=== PATIENT | male | born 1955 | race African-American/Black ===

== ENCOUNTER 2017-06-08 00:26 | Emergency (ER) | payer MEDICAID ==
[~2017-06-08] VITALS: Ht 180.3 cm; Wt 90.7 kg
[2017-06-08] MEDS ORDERED: MORPHINE SULFATE INJ 2 MG/ML DISP.SYRIN ONE ×2 (00:40→03:20)
[2017-06-08] MEDS ORDERED: ONDANSETRON HCL/PF 4 MG/2 ML VIAL ONE ×2 (00:40→03:20)
[2017-06-08] MEDS ORDERED: MORPHINE SULFATE INJ 4 MG/ML DISP.SYRIN ONE ×2 (00:42→03:21)
[2017-06-08] MEDS ORDERED: ASPIRIN 81 MG TAB.CHEW ONE ×2 (00:42)
[2017-06-08 00:51] LABS: BASOPHILS % (AUTO) 0.3 % (0.0-2.0); EOSINOPHILS % (AUTO) 0.6 % (0.0-6.0); HEMATOCRIT 31 % (39-51); HEMOGLOBIN 9.4 g/dL (13.5-17.5); LYMPHOCYTES # (AUTO) 1.3 /CMM (0.8-4.8); LYMPHOCYTES % (AUTO) 19.3 % (20.0-44.0); MEAN CORPUSCULAR HEMOGLOBIN 23 PG (26.0-33.0); MEAN CORPUSCULAR HGB CONC 31 g/dl (31.0-36.0); MEAN CORPUSCULAR VOLUME 74 fL (80-96); MONOCYTES # (AUTO) 0.4 /CMM (0.1-1.30); MONOCYTES % (AUTO) 6.3 % (2.0-12.0); NEUTROPHILS # (AUTO) 4.9 /CMM (1.8-8.9); NEUTROPHILS % (AUTO) 73.5 % (43.0-81.0); PLATELET COUNT (AUTO) 259 /CMM (150-450); RDW COEFFICIENT OF VARIATION 23.6 (11.5-15.0); WHITE BLOOD COUNT (AUTO) 6.7 K/uL (4.3-11.0)
[2017-06-08] MEDS: MORPHINE SULFATE INJ 2 MG/ML DISP.SYRIN IV ONE ×2 (01:03→03:26)
[2017-06-08] MEDS: ONDANSETRON HCL/PF 4 MG/2 ML VIAL IV ONE ×2 (01:03→03:27)
[2017-06-08] MEDS: ASPIRIN 81 MG TAB.CHEW PO ONE (01:03)
[2017-06-08 01:04] LABS: CALCIUM, SERUM 8.8 mg/dL (8.5-10.1); CARBON DIOXIDE 25 mmol/L (21-32); CHLORIDE 109 mmol/L (98-107); CREATININE 1.4 mg/dL (0.6-1.3); GLUCOSE 112 mg/dL (74-106); POTASSIUM 3.8 mmol/L (3.5-5.1); SODIUM SERUM 145 mmol/L (136-145); UREA NITROGEN, BLOOD 15 mg/dL (7-18)
[2017-06-08 01:13] LABS: TROPONIN I < 0.017 ng/mL (0.00-0.056)
[2017-06-08 01:15] LABS: INR 0.99 (0.87-1.13); PROTHROMBIN TIME 10.6 SECS (9.5-12.7)
[2017-06-08 02:19] LABS: EOSINOPHILS % (MANUAL) 1 % (0-4); LYMPHOCYTES % (MANUAL) 19 % (16-48); MONOCYTES % (MANUAL) 9 % (0-11.0); NEUTROPHILS % (MANUAL) 71 (42-76)
[2017-06-08] MEDS ORDERED: diphenhydrAMINE HCL 50 MG/ML VIAL ONE (02:39)
[2017-06-08 02:41] VITALS: BP 110/68
[2017-06-08] MEDS: diphenhydrAMINE HCL 50 MG/ML VIAL IV ONE (02:50)
== END 2017-06-08 03:25 | disposition short-term general hospital (02) ==
LOC: ER 00:31
DX: I25.110 Atherosclerotic heart disease of native coronary artery with unstable angina pectoris (principal); R55 Syncope and collapse; I25.2 Old myocardial infarction; Z86.73 Personal history of transient ischemic attack (TIA), and cerebral infarction without residual deficits; H40.9 Unspecified glaucoma; Z88.0 Allergy status to penicillin; Z95.0 Presence of cardiac pacemaker; Z95.1 Presence of aortocoronary bypass graft
CPT/HCPCS: 36415; 71010-TC; 80048-TC; 84484-TC; 85025-TC; 85730-TC; A4606; J1200; J2270; J2405; Z7610

== ENCOUNTER 2017-06-13 02:45 | Inpatient (IN) | payer MEDICAID ==
[2017-06-13] MEDS ORDERED: ASPIRIN 325 MG TABLET PO ONE (03:00)
[2017-06-13] MEDS ORDERED: ASPIRIN 81 MG TAB.CHEW ONE (03:05)
[2017-06-13] MEDS ORDERED: ONDANSETRON 4 MG TAB.RAPDIS SL ONE (03:30)
[2017-06-13] MEDS ORDERED: ONDANSETRON HCL/PF 4 MG/2 ML VIAL ONE (03:48)
[2017-06-13] MEDS ORDERED: MORPHINE SULFATE INJ 4 MG/ML DISP.SYRIN ONE (04:30)
[2017-06-13] MEDS ORDERED: MORPHINE SULFATE INJ 2 MG/ML DISP.SYRIN IV ONE (04:30)
[2017-06-13] MEDS ORDERED: MORPHINE SULFATE INJ 2 MG/ML DISP.SYRIN ONE (04:31)
[2017-06-13] MEDS ORDERED: ACETAMINOPHEN 325 MG TABLET PO PRN (07:00)
[2017-06-13] MEDS ORDERED: MORPHINE SULFATE INJ 2 MG/ML DISP.SYRIN IV PRN (07:00)
[2017-06-13] MEDS: ONDANSETRON HCL/PF 4 MG/2 ML VIAL IVP PRN ×3 (08:19→20:59)
[2017-06-13] MEDS: diphenhydrAMINE HCL 50 MG/ML VIAL IV PRN ×3 (08:20→20:58)
[2017-06-13] MEDS: ENOXAPARIN SODIUM 40 MG/0.4 ML DISP.SYRIN SQ SCH (08:21)
[2017-06-13] MEDS ORDERED: MORP10SY2 IV (10:15)
[2017-06-13] MEDS ORDERED: DIPH50VI4 IV (10:15)
[2017-06-13] MEDS ORDERED: SIMV80TA2 PO (10:15)
[2017-06-13] MEDS ORDERED: SOTA80TA PO (10:15)
[2017-06-13] MEDS ORDERED: ASPI81TA2 PO (10:15)
[2017-06-13] MEDS ORDERED: LEVO500P8 IV (10:15)
[2017-06-13] MEDS ORDERED: BIMA2.5D5 EACHEYE (10:15)
[2017-06-13] MEDS ORDERED: BRIM5DRO EACHEYE (10:15)
[2017-06-13] MEDS ORDERED: PANT40VI IV (10:15)
[2017-06-13] MEDS ORDERED: TICA90TA PO (10:15)
[2017-06-13] MEDS ORDERED: ISOS60TA4 PO (10:15)
[2017-06-13] MEDS ORDERED: ONDA4VIA30 IV (10:15)
[2017-06-13] MEDS ORDERED: ONDANSETRON HCL/PF 4 MG/2 ML VIAL IV PRN (15:00)
[2017-06-13] MEDS ORDERED: TICAGRELOR 90 MG TABLET PO SCH (17:00)
[2017-06-13] MEDS ORDERED: BIMATOPROST 2.5 ML DROPS OP SCH (18:00)
[2017-06-13] MEDS: BRIMONIDINE TARTRATE OPHT SOLN 5 ML BOTTLE OP SCH (18:35)
[2017-06-13] MEDS: MORPHINE SULFATE INJ 4 MG/ML DISP.SYRIN IV PRN (20:40)
[2017-06-13] MEDS ORDERED: SIMVASTATIN 40 MG TABLET PO SCH (22:00)
[2017-06-13] MEDS ORDERED: LATANOPROST EYE DROP 0.005% 2.5 ML BOTTLE EACHEYE SCH (22:00)
[2017-06-14] MEDS: diphenhydrAMINE HCL 50 MG/ML VIAL IV PRN ×4 (02:14→18:47)
[2017-06-14] MEDS: MORPHINE SULFATE INJ 4 MG/ML DISP.SYRIN IV PRN ×4 (02:14→17:22)
[2017-06-14] MEDS ORDERED: REGADENOSON 0.4 MG/5 ML DISP.SYRIN IVP ONE (08:00)
[2017-06-14] MEDS ORDERED: LOSARTAN POTASSIUM 50 MG TABLET PO SCH (09:00)
[2017-06-14] MEDS ORDERED: SOTALOL HCL 80 MG TABLET PO SCH (09:00)
[2017-06-14] MEDS ORDERED: ASPIRIN 81 MG TAB.CHEW PO SCH (09:00)
[2017-06-14] MEDS ORDERED: ISOSORBIDE MONONITRATE (30MG) 30 MG TAB.SR.24H PO SCH (09:00)
[2017-06-14] MEDS ORDERED: ISOSORBIDE MONONITRATE 60 MG TAB.SR.24H PO SCH (09:00)
[2017-06-14] MEDS: BRIMONIDINE TARTRATE OPHT SOLN 5 ML BOTTLE OP SCH ×2 (09:25→17:13)
[2017-06-14] MEDS: ENOXAPARIN SODIUM 40 MG/0.4 ML DISP.SYRIN SQ SCH (09:31)
[2017-06-14] MEDS: Magnesium 1GM/D5W 100ML PREMIX 100 ML IV SCH ×2 (11:17→12:39)
[2017-06-14] MEDS: TICAGRELOR 90 MG TABLET PO SCH ×2 (11:17→17:13)
[2017-06-14] MEDS: ONDANSETRON HCL/PF 4 MG/2 ML VIAL IVP PRN ×2 (12:39→18:47)
== END 2017-06-14 20:00 | disposition home or self-care (01) | DRG 198 ==
DX: R07.89 Other chest pain (principal); I25.10 Atherosclerotic heart disease of native coronary artery without angina pectoris; I69.351 Hemiplegia and hemiparesis following cerebral infarction affecting right dominant side; I10 Essential (primary) hypertension; R55 Syncope and collapse; Z95.810 Presence of automatic (implantable) cardiac defibrillator; Z95.1 Presence of aortocoronary bypass graft; Z95.5 Presence of coronary angioplasty implant and graft; H40.9 Unspecified glaucoma; Z76.5 Malingerer [conscious simulation]; Z88.0 Allergy status to penicillin; Z88.8 Allergy status to other drugs, medicaments and biological substances; G89.29 Other chronic pain; E66.9 Obesity, unspecified; E78.5 Hyperlipidemia, unspecified

== ENCOUNTER 2017-06-20 00:40 | Emergency (ER) | payer MEDICAID ==
[~2017-06-20] VITALS: Ht 180.3 cm; Wt 107.0 kg
[~2017-06-20 00:40] MED LIST: ASPI81TA2 PO; BIMA2.5D5 EACHEYE; BRIM5DRO EACHEYE; DIPH50VI4 IV; ISOS60TA4 PO; LEVO500P8 IV; MORP10SY2 IV; ONDA4VIA30 IV; PANT40VI IV; SIMV80TA2 PO; SOTA80TA PO; TICA90TA PO
[2017-06-20 00:45] VITALS: BP 114/96
--- NOTE | 2017-06-20 00:54 | NUR ---
TO BED 11 STATES "HAD SHARP PAIN IN MY CHEST THEN PASSED OUT, NOW I HAVE PRESSURE". PT AAOX4 NO ACUTE DISTRESS NOTED, RESP EVEN AND UNLABORED. PLACE PT ON CARDIAC MONITORING, CONTINUOUS POX. PENDING ER MD DOLAN.
--- NOTE | 2017-06-20 01:29 | NUR ---
PT NOT IN ROOM FOR BLOOD DRAW. PT ELOPED.
== END 2017-06-20 01:31 | disposition left against medical advice (07) ==
LOC: ER 00:43
DX: R07.89 Other chest pain (principal); R55 Syncope and collapse; E11.9 Type 2 diabetes mellitus without complications; H40.9 Unspecified glaucoma; I25.10 Atherosclerotic heart disease of native coronary artery without angina pectoris; K21.9 Gastro-esophageal reflux disease without esophagitis; Z79.82 Long term (current) use of aspirin; Z86.73 Personal history of transient ischemic attack (TIA), and cerebral infarction without residual deficits; Z88.0 Allergy status to penicillin; Z91.19 Patient's noncompliance with other medical treatment and regimen; Z95.1 Presence of aortocoronary bypass graft; Z95.810 Presence of automatic (implantable) cardiac defibrillator; Z88.8 Allergy status to other drugs, medicaments and biological substances
CPT/HCPCS: A4606; Z7610

== ENCOUNTER 2017-07-06 12:16 | Emergency (ER) | payer MEDICAID ==
[~2017-07-06] VITALS: Ht 180.3 cm; Wt 106.6 kg
[2017-07-06 12:55] LABS: BASOPHILS # (AUTO) 0.3 /CMM (0.0-0.2); BASOPHILS % (AUTO) 4.2 % (0.0-2.0); EOSINOPHILS # (AUTO) 0.1 /CMM (0.0-0.7); EOSINOPHILS % (AUTO) 0.8 % (0.0-6.0); HEMATOCRIT 32 % (39-51); HEMOGLOBIN 9.7 g/dL (13.5-17.5); LYMPHOCYTES # (AUTO) 1.2 /CMM (0.8-4.8); LYMPHOCYTES % (AUTO) 14.8 % (20.0-44.0); MEAN CORPUSCULAR HEMOGLOBIN 22 PG (26.0-33.0); MEAN CORPUSCULAR HGB CONC 30 g/dl (31.0-36.0); MEAN CORPUSCULAR VOLUME 72 fL (80-96); MONOCYTES # (AUTO) 0.5 /CMM (0.1-1.30); NEUTROPHILS # (AUTO) 6.1 /CMM (1.8-8.9); NEUTROPHILS % (AUTO) 74.2 % (43.0-81.0); PLATELET COUNT (AUTO) 323 /CMM (150-450); RDW COEFFICIENT OF VARIATION 20.5 (11.5-15.0); RED BLOOD CELL COUNT(AUTO) 4.41 MIL/uL (4.5-6.0); WHITE BLOOD COUNT (AUTO) 8.2 K/uL (4.3-11.0)
[2017-07-06 13:05] LABS: CALCIUM, SERUM 8.7 mg/dL (8.5-10.1); CARBON DIOXIDE 23 mmol/L (21-32); CHLORIDE 106 mmol/L (98-107); CREATININE 1.5 mg/dL (0.6-1.3); GLUCOSE 97 mg/dL (74-106); POTASSIUM 4.2 mmol/L (3.5-5.1); SODIUM SERUM 141 mmol/L (136-145); UREA NITROGEN, BLOOD 19 mg/dL (7-18)
[2017-07-06 13:11] LABS: ALANINE AMINOTRANSFERASE 23 U/L (12-78); ALKALINE PHOSPHATASE 109 U/L (46-116); ASPARTATE AMINOTRANSFERASE 19 U/L (15-37); BILIRUBIN,DIRECT 0.1 mg/dL (0.0-0.2); BILIRUBIN,TOTAL 0.3 mg/dL (0.2-1.0); TOTAL PROTEIN, SERUM 7.7 g/dL (6.4-8.2)
[2017-07-06 13:12] LABS: TROPONIN I < 0.017 ng/mL (0.00-0.056)
[2017-07-06 13:41] LABS: INR 0.95 (0.87-1.13); PROTHROMBIN TIME 9.9 SECS (9.5-12.7)
[2017-07-06 13:59] LABS: LYMPHOCYTES % (MANUAL) 13 % (16-48); MONOCYTES % (MANUAL) 11 % (0-11.0); NEUTROPHILS % (MANUAL) 76 (42-76)
[2017-07-06 15:09] VITALS: BP 129/76
== END 2017-07-06 15:14 | disposition home or self-care (01) ==
LOC: ER 12:17
DX: R07.89 Other chest pain (principal); H40.9 Unspecified glaucoma; I10 Essential (primary) hypertension; K21.9 Gastro-esophageal reflux disease without esophagitis; Z79.82 Long term (current) use of aspirin; Z86.73 Personal history of transient ischemic attack (TIA), and cerebral infarction without residual deficits; Z95.1 Presence of aortocoronary bypass graft; Z88.0 Allergy status to penicillin; Z88.8 Allergy status to other drugs, medicaments and biological substances
CPT/HCPCS: 36415; 71010-TC; 80048-TC; 80076-TC; 84484-TC; 85025-TC; 85730-TC; A4606; Z7610

== ENCOUNTER 2017-11-08 15:07 | Inpatient (IN) | payer MEDICAID, OTHER ==
[~2017-11-08] VITALS: Ht 177.8 cm; Wt 103.0 kg
[~2017-11-08 15:07] MED LIST changes: +ASPI-1169 PO; -ASPI81TA2 PO
[2017-11-08] MEDS ORDERED: ASPIRIN 81 MG TAB.CHEW ONE (15:17)
[2017-11-08] MEDS ORDERED: ASPIRIN 325 MG TABLET PO ONE (15:30)
[2017-11-08 15:33] LABS: BASOPHILS # (AUTO) 0.3 /CMM (0.0-0.2); BASOPHILS % (AUTO) 4.1 % (0.0-2.0); EOSINOPHILS # (AUTO) 0.1 /CMM (0.0-0.7); EOSINOPHILS % (AUTO) 1.2 % (0.0-6.0); HEMATOCRIT 36 % (39-51); HEMOGLOBIN 11.8 g/dL (13.5-17.5); LYMPHOCYTES # (AUTO) 1.7 /CMM (0.8-4.8); LYMPHOCYTES % (AUTO) 27.7 % (20.0-44.0); MEAN CORPUSCULAR HEMOGLOBIN 24 PG (26.0-33.0); MEAN CORPUSCULAR HGB CONC 33 g/dl (31.0-36.0); MEAN CORPUSCULAR VOLUME 74 fL (80-96); MONOCYTES # (AUTO) 0.4 /CMM (0.1-1.30); MONOCYTES % (AUTO) 7.1 % (2.0-12.0); NEUTROPHILS # (AUTO) 3.7 /CMM (1.8-8.9); NEUTROPHILS % (AUTO) 59.9 % (43.0-81.0); PLATELET COUNT (AUTO) 254 /CMM (150-450); RDW COEFFICIENT OF VARIATION 23.3 (11.5-15.0); RED BLOOD CELL COUNT(AUTO) 4.89 MIL/uL (4.5-6.0); WHITE BLOOD COUNT (AUTO) 6.2 K/uL (4.3-11.0)
[2017-11-08 15:41] LABS: CALCIUM, SERUM 8.8 mg/dL (8.5-10.1); CARBON DIOXIDE 25 mmol/L (21-32); CHLORIDE 105 mmol/L (98-107); CREATININE 1.3 mg/dL (0.6-1.3); GLUCOSE 147 mg/dL (74-106); POTASSIUM 3.6 mmol/L (3.5-5.1); SODIUM SERUM 138 mmol/L (136-145); UREA NITROGEN, BLOOD 16 mg/dL (7-18)
[2017-11-08 15:46] LABS: INR 0.97 (0.85-1.15)
[2017-11-08 15:50] LABS: TROPONIN I < 0.017 ng/mL (0.00-0.056)
[2017-11-08] MEDS ORDERED: ONDANSETRON HCL/PF 4 MG/2 ML VIAL ONE ×2 (16:30→19:47)
[2017-11-08] MEDS ORDERED: ONDANSETRON HCL/PF 4 MG/2 ML VIAL IV ONE ×2 (16:30→20:00)
[2017-11-08] MEDS ORDERED: HYDROMORPHONE INJ 0.5 MG/0.5 ML SYRINGE IV ONE (16:30)
[2017-11-08] MEDS ORDERED: HYDROMORPHONE 1 MG/1 ML DISP.SYRIN ONE ×2 (16:30→18:29)
[2017-11-08] MEDS ORDERED: BISA10SU61 RC (18:17)
[2017-11-08] MEDS ORDERED: PANT40TA4 PO (18:17)
[2017-11-08] MEDS ORDERED: LISI2.5T2 PO (18:17)
[2017-11-08] MEDS ORDERED: ATOR80TA PO (18:17)
[2017-11-08] MEDS ORDERED: CRAN1CAP6 PO (18:17)
[2017-11-08] MEDS ORDERED: ACET325T53 PO (18:17)
[2017-11-08] MEDS ORDERED: HYDR4TAB4 PO (18:17)
[2017-11-08] MEDS ORDERED: MAGN400O6 PO (18:17)
[2017-11-08] MEDS ORDERED: NA P133E RC (18:17)
[2017-11-08] MEDS ORDERED: RANO500T3 PO (18:17)
[2017-11-08] MEDS ORDERED: diphenhydrAMINE HCL 25 MG CAPSULE ONE (18:29)
[2017-11-08] MEDS ORDERED: HYDROMORPHONE 1 MG/1 ML DISP.SYRIN IV ONE (18:30)
[2017-11-08] MEDS ORDERED: diphenhydrAMINE HCL 25 MG CAPSULE PO ONE (18:30)
[2017-11-08 19:51] VITALS: BP 115/72
[2017-11-08] MEDS ORDERED: ACETAMINOPHEN 325 MG TABLET PO PRN (20:30)
[2017-11-08] MEDS ORDERED: NITROGLYCERIN 0.4 MG/TAB BOTTLE SL PRN (20:30)
[2017-11-08] MEDS ORDERED: ONDANSETRON HCL/PF 4 MG/2 ML VIAL IVP PRN (20:30)
[2017-11-08] MEDS ORDERED: diphenhydrAMINE HCL 50 MG/ML VIAL IV PRN (20:30)
[2017-11-08] MEDS ORDERED: BISACODYL SUPP (10 MG) 10 MG/SUPP.RECT SUPP.RECT RC PRN (20:30)
[2017-11-08] MEDS ORDERED: TICAGRELOR 90 MG TABLET PO ONE (21:00)
[2017-11-08] MEDS ORDERED: BRIMONIDINE TARTRATE OPHT SOLN 5 ML BOTTLE EACHEYE SCH (21:00)
[2017-11-08] MEDS ORDERED: MORPHINE SULFATE INJ 4 MG/ML DISP.SYRIN IV PRN (21:00)
[2017-11-08] MEDS ORDERED: ATORVASTATIN 40 MG TABLET PO SCH (22:00)
[2017-11-08] MEDS ORDERED: LATANOPROST EYE DROP 0.005% 2.5 ML BOTTLE EACHEYE SCH (22:00)
[2017-11-09] MEDS ORDERED: PANTOPRAZOLE 40 MG TABLET.DR PO SCH (07:30)
[2017-11-09] MEDS ORDERED: LISINOPRIL (5MG) 5 MG TABLET PO SCH (09:00)
[2017-11-09] MEDS ORDERED: Medication Not On Formulary EA (Vit C/Vitamin E Acetate/Cranb (Cranberry Concentrate Sof PO SCH (09:00)
[2017-11-09] MEDS ORDERED: ISOSORBIDE MONONITRATE 60 MG TAB.SR.24H PO SCH (09:00)
[2017-11-09] MEDS ORDERED: TICAGRELOR 90 MG TABLET PO SCH (09:00)
[2017-11-09] MEDS ORDERED: ASPIRIN 81 MG TAB.CHEW PO SCH (09:00)
[2017-11-09] MEDS ORDERED: SOTALOL HCL 80 MG TABLET PO SCH (09:00)
== END 2017-11-09 02:00 | disposition left against medical advice (07) | DRG 198 ==
LOC: ER 15:07 → TELE 20:21
PROVIDERS: ADMIT Internal Medicine; ATTEND Internal Medicine
DX: I25.110 Atherosclerotic heart disease of native coronary artery with unstable angina pectoris (principal); I69.351 Hemiplegia and hemiparesis following cerebral infarction affecting right dominant side; I10 Essential (primary) hypertension; H40.9 Unspecified glaucoma; S72.002S Fracture of unspecified part of neck of left femur, sequela; D63.8 Anemia in other chronic diseases classified elsewhere; K59.00 Constipation, unspecified; I25.2 Old myocardial infarction; Z95.1 Presence of aortocoronary bypass graft; Z95.5 Presence of coronary angioplasty implant and graft; K21.9 Gastro-esophageal reflux disease without esophagitis; Z88.0 Allergy status to penicillin; Z88.8 Allergy status to other drugs, medicaments and biological substances; Z79.899 Other long term (current) drug therapy; Z79.82 Long term (current) use of aspirin; X58.XXXS Exposure to other specified factors, sequela
CPT/HCPCS: 36415; 71045-TC; 80048-TC; 84484-TC; 85025-TC; 85730-TC; 87081-TC; A4606; J1170; J1200; J2405; Q0163; Z7610

== ENCOUNTER 2018-02-25 03:30 | Emergency (ER) | payer MEDICAID, OTHER ==
[~2018-02-25] VITALS: Ht 182.9 cm; Wt 106.6 kg
[~2018-02-25 03:30] MED LIST changes: +ACET325T53 PO; +ATOR80TA PO; +BISA10SU61 RC; +CRAN1CAP6 PO; -DIPH50VI4 IV; +HYDR4TAB4 PO; -LEVO500P8 IV; +LISI2.5T2 PO; +MAGN400O6 PO; -MORP10SY2 IV; +NA P133E RC; -ONDA4VIA30 IV; +PANT40TA4 PO; -PANT40VI IV; +RANO500T3 PO; -SIMV80TA2 PO
--- NOTE | 2018-02-25 03:30 | NUR ---
BB RA FROM HOME FOR CHEST PAIN X 2 HRS. 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 PT WITH CAREGIVER AT BEDSIDE. VSS NAD. PT ARRIVED WITH RIGHT UPPER ARM PICC LINE. WILL CONTINUE TO MONITOR FOR ANY CHANGES DURING THE SHIFT.
[2018-02-25] MEDS ORDERED: MORPHINE SULFATE INJ 2 MG/ML DISP.SYRIN IV ONE (04:00)
[2018-02-25] MEDS ORDERED: ONDANSETRON HCL/PF 4 MG/2 ML VIAL IVP ONE (04:00)
--- NOTE | 2018-02-25 04:00 | NUR ---
EKG AT BEDSIDE
[2018-02-25] MEDS ORDERED: MORPHINE SULFATE INJ 4 MG/ML DISP.SYRIN ONE (04:01)
[2018-02-25] MEDS ORDERED: ONDANSETRON HCL/PF 4 MG/2 ML VIAL ONE (04:01)
--- NOTE | 2018-02-25 04:10 | NUR ---
BLOOD AND URINE SENT TO LAB
--- NOTE | 2018-02-25 04:12 | NUR ---
CHEST XRAY AT BEDSIDE
[2018-02-25 04:23] LABS: BASOPHILS % (AUTO) 0.9 % (0.0-2.0); EOSINOPHILS % (AUTO) 1.6 % (0.0-6.0); HEMATOCRIT 38 % (39-51); HEMOGLOBIN 12.3 g/dL (13.5-17.5); LYMPHOCYTES # (AUTO) 1.4 /CMM (0.8-4.8); LYMPHOCYTES % (AUTO) 25.3 % (20.0-44.0); MEAN CORPUSCULAR HGB CONC 32 g/dl (31.0-36.0); MEAN CORPUSCULAR VOLUME 80 fL (80-96); MONOCYTES # (AUTO) 0.3 /CMM (0.1-1.30); NEUTROPHILS # (AUTO) 3.7 /CMM (1.8-8.9); NEUTROPHILS % (AUTO) 66.2 % (43.0-81.0); PLATELET COUNT (AUTO) 316 /CMM (150-450); RDW COEFFICIENT OF VARIATION 20.4 (11.5-15.0); WHITE BLOOD COUNT (AUTO) 5.6 K/uL (4.3-11.0)
[2018-02-25 04:34] LABS: CARBON DIOXIDE 26 mmol/L (21-32); CHLORIDE 104 mmol/L (98-107); CREATININE 1.2 mg/dL (0.6-1.3); GLUCOSE 116 mg/dL (74-106); POTASSIUM 4.1 mmol/L (3.5-5.1); SODIUM SERUM 139 mmol/L (136-145); UREA NITROGEN, BLOOD 21 mg/dL (7-18)
[2018-02-25 04:39] LABS: INR 0.92 (0.87-1.13)
[2018-02-25 04:42] LABS: TROPONIN I < 0.017 ng/mL (0.00-0.056)
[2018-02-25 04:47] LABS: B-TYPE NATRIURETIC PEPTIDE 263 PG/ML (0-125)
[2018-02-25 06:07] VITALS: BP 137/78
== END 2018-02-25 06:07 | disposition home or self-care (01) ==
LOC: ER 03:32 → UNDOADMIN 05:24 → TELE1 05:24 → ER 06:07
DX: R07.89 Other chest pain (principal); I10 Essential (primary) hypertension; I25.10 Atherosclerotic heart disease of native coronary artery without angina pectoris; I25.2 Old myocardial infarction; K21.9 Gastro-esophageal reflux disease without esophagitis; E78.00 Pure hypercholesterolemia, unspecified; H40.9 Unspecified glaucoma; F17.200 Nicotine dependence, unspecified, uncomplicated; Z86.73 Personal history of transient ischemic attack (TIA), and cerebral infarction without residual deficits; Z95.0 Presence of cardiac pacemaker; Z95.1 Presence of aortocoronary bypass graft; Z88.0 Allergy status to penicillin; Z88.8 Allergy status to other drugs, medicaments and biological substances; Z79.82 Long term (current) use of aspirin
CPT/HCPCS: 36415; 71045-TC; 80048-TC; 83880; 84484-TC; 85025-TC; 85730-TC; A4606; J2270; J2405; Z7610

== ENCOUNTER 2018-10-08 22:45 | Inpatient (IN) | payer MEDICAID ==
[~2018-10-08] VITALS: Ht 182.9 cm; Wt 101.6 kg
[2018-10-08 01:20] VITALS: BP 126/69
[2018-10-08] MEDS ORDERED: ONDANSETRON HCL/PF 4 MG/2 ML VIAL ONE (23:29)
[2018-10-08] MEDS ORDERED: HYDROMORPHONE 1 MG/1 ML DISP.SYRIN ONE (23:29)
[2018-10-08] MEDS ORDERED: NITROGLYCERIN PACKET 1 GM PACKET ONE (23:29)
[2018-10-08] MEDS ORDERED: ASPIRIN 81 MG TAB.CHEW ONE (23:29)
[2018-10-08] MEDS ORDERED: HYDROMORPHONE 1 MG/1 ML DISP.SYRIN IV ONE (23:30)
[2018-10-08] MEDS ORDERED: NITROGLYCERIN PACKET 1 GM PACKET TD ONE (23:30)
[2018-10-08] MEDS ORDERED: ASPIRIN 81 MG TAB.CHEW PO ONE (23:30)
[2018-10-08] MEDS ORDERED: ONDANSETRON HCL/PF - ER 4 MG/2 ML VIAL IV ONE (23:30)
[2018-10-08 23:51] LABS: BASOPHILS # (AUTO) 0.2 /CMM (0.0-0.2); BASOPHILS % (AUTO) 2.6 % (0.0-2.0); EOSINOPHILS % (AUTO) 2.3 % (0.0-6.0); HEMATOCRIT 36 % (39-51); HEMOGLOBIN 11.1 g/dL (13.5-17.5); LYMPHOCYTES # (AUTO) 1.3 /CMM (0.8-4.8); LYMPHOCYTES % (AUTO) 21.5 % (20.0-44.0); MEAN CORPUSCULAR HGB CONC 31 g/dl (31.0-36.0); MEAN CORPUSCULAR VOLUME 76 fL (80-96); MONOCYTES # (AUTO) 0.4 /CMM (0.1-1.30); NEUTROPHILS # (AUTO) 4.2 /CMM (1.8-8.9); NEUTROPHILS % (AUTO) 67.6 % (43.0-81.0); PLATELET COUNT (AUTO) 224 /CMM (150-450); RED BLOOD CELL COUNT(AUTO) 4.73 MIL/uL (4.5-6.0); WHITE BLOOD COUNT (AUTO) 6.2 K/uL (4.3-11.0)
[2018-10-09] VITALS: BP 113/63
[2018-10-09 00:11] LABS: CALCIUM, SERUM 9.5 mg/dL (8.5-10.1); CARBON DIOXIDE 26 mmol/L (21-32); CHLORIDE 103 mmol/L (98-107); CREATININE 1.1 mg/dL (0.6-1.3); GLUCOSE 154 mg/dL (74-106); POTASSIUM 3.9 mmol/L (3.5-5.1); SODIUM SERUM 140 mmol/L (136-145); UREA NITROGEN, BLOOD 18 mg/dL (7-18)
[2018-10-09 00:15] LABS: ALANINE AMINOTRANSFERASE 21 U/L (12-78); ALBUMIN 3.5 g/dL (3.4-5.0); ALKALINE PHOSPHATASE 94 U/L (46-116); ASPARTATE AMINOTRANSFERASE 19 U/L (15-37); B-TYPE NATRIURETIC PEPTIDE 445 PG/ML (0-125); BILIRUBIN,DIRECT 0.1 mg/dL (0.0-0.2); BILIRUBIN,TOTAL 0.3 mg/dL (0.2-1.0); TOTAL PROTEIN, SERUM 7.3 g/dL (6.4-8.2)
[2018-10-09] MEDS: ASPIRIN 81 MG TAB.CHEW PO SCH ×3 (02:00→08:31)
[2018-10-09] MEDS ORDERED: MORPHINE SULFATE INJ 2 MG/ML DISP.SYRIN IV PRN (02:00)
[2018-10-09] MEDS ORDERED: NITROGLYCERIN 0.4 MG/TAB BOTTLE SL PRN (02:00)
[2018-10-09] MEDS: CARVEDILOL 6.25 MG TABLET PO SCH ×2 (02:00→08:31)
[2018-10-09] MEDS: MORPHINE SULFATE INJ 4 MG/ML DISP.SYRIN IV PRN ×3 (02:48→12:12)
[2018-10-09] MEDS: ONDANSETRON HCL/PF 4 MG/2 ML VIAL IV PRN ×3 (02:49→16:12)
[2018-10-09] MEDS: diphenhydrAMINE HCL 50 MG/ML VIAL IV PRN ×4 (05:15→22:07)
[2018-10-09 08:00] VITALS: BP 124/72
[2018-10-09] MEDS: ISOSORBIDE MONONITRATE (30MG) 30 MG TAB.SR.24H PO SCH (10:34)
[2018-10-09] MEDS: SOTALOL HCL 80 MG TABLET PO SCH ×2 (10:34→21:00)
[2018-10-09] MEDS ORDERED: ACETAMINOPHEN 325 MG TABLET PO PRN (12:00)
[2018-10-09] MEDS ORDERED: BISACODYL SUPP (10 MG) 10 MG/SUPP.RECT SUPP.RECT RC PRN (12:00)
[2018-10-09] MEDS: TICAGRELOR 90 MG TABLET PO SCH ×2 (12:04→17:06)
[2018-10-09] MEDS ORDERED: HYDROMORPHONE INJ 0.5 MG/0.5 ML SYRINGE IV PRN (14:30)
[2018-10-09] MEDS: BRIMONIDINE TARTRATE OPHT SOLN 5 ML BOTTLE EACHEYE SCH ×2 (14:52→21:00)
[2018-10-09] MEDS: HYDROMORPHONE INJ 2 MG/ML DISP.SYRIN IV PRN ×2 (14:52→20:26)
[2018-10-09 16:00] VITALS: BP 103/62
[2018-10-09] MEDS: PANTOPRAZOLE 40 MG TABLET.DR PO SCH (16:12)
[2018-10-09] MEDS ORDERED: SOTALOL HCL 80 MG TABLET PO SCH (17:00)
[2018-10-09 20:00] VITALS: BP 108/56
[2018-10-09] MEDS ORDERED: TICAGRELOR 90 MG TABLET PO SCH (21:00)
[2018-10-09] MEDS: LATANOPROST EYE DROP 0.005% 2.5 ML BOTTLE OP SCH (22:00)
[2018-10-09] MEDS ORDERED: ATORVASTATIN 40 MG TABLET PO SCH (22:00)
[2018-10-10] VITALS (8 sets, daily range): BP systolic 106–137; BP diastolic 50–84
[2018-10-10] MEDS: ONDANSETRON HCL/PF 4 MG/2 ML VIAL IV PRN ×3 (04:41→19:26)
[2018-10-10] MEDS: HYDROMORPHONE INJ 2 MG/ML DISP.SYRIN IV PRN ×6 (04:41→21:21)
[2018-10-10] MEDS: BRIMONIDINE TARTRATE OPHT SOLN 5 ML BOTTLE EACHEYE SCH ×5 (05:00→21:19)
[2018-10-10] MEDS: diphenhydrAMINE HCL 50 MG/ML VIAL IV PRN ×3 (06:43→19:26)
[2018-10-10] MEDS: PANTOPRAZOLE 40 MG TABLET.DR PO SCH ×2 (08:19→18:03)
[2018-10-10] MEDS: ASPIRIN 81 MG TAB.CHEW PO SCH (08:20)
[2018-10-10] MEDS: ISOSORBIDE MONONITRATE (30MG) 30 MG TAB.SR.24H PO SCH (08:20)
[2018-10-10] MEDS: SOTALOL HCL 80 MG TABLET PO SCH ×2 (08:21→21:20)
[2018-10-10] MEDS: TICAGRELOR 90 MG TABLET PO SCH ×2 (08:21→18:03)
[2018-10-10 08:27] LABS: BASOPHILS % (AUTO) 0.2 % (0.0-2.0); EOSINOPHILS % (AUTO) 1.7 % (0.0-6.0); HEMATOCRIT 32 % (39-51); LYMPHOCYTES % (AUTO) 21.4 % (20.0-44.0); MEAN CORPUSCULAR HGB CONC 31 g/dl (31.0-36.0); MEAN CORPUSCULAR VOLUME 76 fL (80-96); MONOCYTES # (AUTO) 0.3 /CMM (0.1-1.30); MONOCYTES % (AUTO) 5.7 % (2.0-12.0); NEUTROPHILS # (AUTO) 3.4 /CMM (1.8-8.9); PLATELET COUNT (AUTO) 223 /CMM (150-450); RED BLOOD CELL COUNT(AUTO) 4.27 MIL/uL (4.5-6.0); WHITE BLOOD COUNT (AUTO) 4.8 K/uL (4.3-11.0)
[2018-10-10 08:39] LABS: CALCIUM, SERUM 8.7 mg/dL (8.5-10.1); MAGNESIUM 1.7 mg/dL (1.8-2.4); PHOSPHORUS 3.6 mg/dL (2.5-4.9); POTASSIUM 4.2 mmol/L (3.5-5.1)
[2018-10-10] MEDS ORDERED: LISINOPRIL (5MG) 5 MG TABLET PO SCH (09:00)
[2018-10-10] MEDS ORDERED: Medication Not On Formulary EA (Isosorbide Mononitrate 60 MG) PO SCH (09:00)
[2018-10-10] MEDS ORDERED: ASPIRIN 81 MG TAB.CHEW PO SCH (09:00)
[2018-10-10] MEDS: Magnesium 1GM/D5W 100ML PREMIX 100 ML IV SCH ×2 (15:14→16:25)
[2018-10-10] MEDS: LATANOPROST EYE DROP 0.005% 2.5 ML BOTTLE OP SCH (21:23)
[2018-10-10] MEDS ORDERED: ATORVASTATIN 40 MG TABLET PO SCH (22:00)
== END 2018-10-10 21:48 | DRG 198 ==
LOC: ER 22:51 → TELE 10-09 01:54
PROVIDERS: ADMIT Internal Medicine; ATTEND Internal Medicine
PROC: 5A09357 Assistance with Respiratory Ventilation, Less than 24 Consecutive Hours, Continuous Positive Airway Pressure (ICD-10-PCS; principal; 2018-10-09)
DX: I25.119 Atherosclerotic heart disease of native coronary artery with unspecified angina pectoris (principal); I11.0 Hypertensive heart disease with heart failure; I50.22 Chronic systolic (congestive) heart failure; Z95.1 Presence of aortocoronary bypass graft; E11.9 Type 2 diabetes mellitus without complications; E78.5 Hyperlipidemia, unspecified; Z95.810 Presence of automatic (implantable) cardiac defibrillator; Z86.73 Personal history of transient ischemic attack (TIA), and cerebral infarction without residual deficits; Z83.3 Family history of diabetes mellitus; K21.9 Gastro-esophageal reflux disease without esophagitis; F17.290 Nicotine dependence, other tobacco product, uncomplicated; G47.33 Obstructive sleep apnea (adult) (pediatric); G89.0 Central pain syndrome; H40.9 Unspecified glaucoma; Z79.899 Other long term (current) drug therapy
CPT/HCPCS: 36415; 71045-TC; 80048-TC; 80061-TC; 80076-TC; 83735-TC; 83880; 84100-TC; 84484-TC; 85025-TC; 85730-TC; 87081-TC; 93307-TC; G0378; J1170; J1200; J2270; J2405; J3475